=== PATIENT | male | born 1950 | race Caucasian/White ===

== ENCOUNTER → 2018-09-11 | Outpatient (CLI) | payer MEDICARE ==
[2018-09-11 14:19] LABS: ALANINE AMINOTRANSFERASE 34 U/L (21-72); ALBUMIN 3.9 g/dL (3.5-5.0); ALKALINE PHOSPHATASE 64 U/L (38-126); ASPARTATE AMINO TRANSFERASE 37 U/L (17-59); BILIRUBIN,DIRECT 0.1 mg/dL (0.0-0.4); BILIRUBIN,TOTAL 0.4 mg/dL (0.2-1.3); TOTAL PROTEIN 6.5 g/dL (6.3-8.2)
[2018-09-12 15:24] LABS: HEPATITIS B SURFACE AB QUANT 739.9 mIU/mL (Immunity>9); HEPATITS B SURFACE ANTIGEN Negative (Negative)
[2018-09-13 08:43] LABS: HCV FIBROSURE ALT P5P 24 IU/L (0-55); HCV FIBROSURE GGT 49 IU/L (0-65); HCV FIBROSURE HAPTOGLOBIN 189 mg/dL (34-200); NECROINFLAM ACTIVITY GRADE A0-No activity (.); NECROINFLAMM ACTIVITY SCORE 0.07 (0.00-0.17)
[2018-09-13 12:38] LABS: HEPATITIS C QUANTITATION 296000 IU/mL (.)
== END ==
LOC: LAB 13:16
PROVIDERS: ATTEND Internal Medicine Gastroenterology
DX: B18.2 Chronic viral hepatitis C (principal)
CPT/HCPCS: 36415; 80076; 81270; 82172; 82247; 82977; 83010; 83883; 84460; 86317; 87340; 87522